=== PATIENT | male | born 1985 | race African-American/Black ===

== ENCOUNTER 2019-08-22 13:03 | Emergency (ER) | payer MEDICAID ==
[~2019-08-22] VITALS: Ht 193 cm; Wt 89.0 kg
[2019-08-22 13:36] VITALS: BP 147/80
== END 2019-08-22 15:02 | disposition home or self-care (01) ==
LOC: ER 13:03
DX: H61.23 Impacted cerumen, bilateral (principal)
CPT/HCPCS: 99282

== ENCOUNTER 2019-08-23 10:36 | Emergency (ER) | payer MEDICAID, OTHER ==
[~2019-08-23] VITALS: Ht 193 cm; Wt 88.5 kg
[2019-08-23] MEDS ORDERED: DOCUSATE SODIUM SUGAR FREE 100MG/10ML UDC NG ONE (13:30)
[2019-08-23 16:11] VITALS: BP 144/70
== END 2019-08-23 16:13 | disposition home or self-care (01) ==
LOC: ER 10:36
DX: H61.23 Impacted cerumen, bilateral (principal); F12.10 Cannabis abuse, uncomplicated; F17.200 Nicotine dependence, unspecified, uncomplicated
CPT/HCPCS: 69209; 99282; A4217; Z7610